=== PATIENT | female | born 1995 | race Two or more races ===

== ENCOUNTER 2017-04-29 20:28 | Emergency (ER) | payer OTHER ==
[~2017-04-29] VITALS: Ht 152.4 cm; Wt 62.3 kg
[~2017-04-29 20:28] MED LIST: FERR325T23 PO; IBUP200T48 PO; LEVE500T53 PO; NITR100C56 PO; OXYC-302 PO; PREN1TAB60 PO
[2017-04-29 21:04] VITALS: BP 130/80
[2017-04-29 21:29] LABS: ASPARTATE AMINO TRANSFERASE 12 U/L (15-37); BLOOD UREA NITROGEN 9 mg/dL (7-18)
== END 2017-04-29 21:51 | disposition home or self-care (01) ==
LOC: ED 21:45
DX: O26.891 Other specified pregnancy related conditions, first trimester (principal); R56.9 Unspecified convulsions; Z91.040 Latex allergy status; Z91.018 Allergy to other foods; Z3A.09 9 weeks gestation of pregnancy
CPT/HCPCS: 36415; 76801; 80053; 93005; 99285

== ENCOUNTER 2017-08-03 09:49 | Outpatient (CLI) | payer OTHER ==
[~2017-08-03] VITALS: Ht 152.4 cm; Wt 68.2 kg
[2017-08-03 10:35] VITALS: BP 114/79
[2017-08-03 10:57] LABS: AMNI OBC PASS; AMNISURE NEGATIVE (NEGATIVE)
== END 2017-08-03 11:15 | disposition home or self-care (01) ==
LOC: LDOP 09:49
PROVIDERS: ATTEND Obstetrics & Gynecology
DX: O42.912 Preterm premature rupture of membranes, unspecified as to length of time between rupture and onset of labor, second trimester (principal); Z3A.22 22 weeks gestation of pregnancy
CPT/HCPCS: 59025; 84112; 99211; G0463

== ENCOUNTER 2017-10-22 11:03 | Outpatient (CLI) | payer MEDICAID, OTHER ==
[~2017-10-22] VITALS: Ht 152.4 cm; Wt 75.0 kg
[~2017-10-22 11:03] MED LIST changes: -IBUP200T48 PO; +IBUP200T49 PO
[2017-10-22 11:11] VITALS: BP 112/77
== END 2017-10-22 12:18 | disposition home or self-care (01) ==
LOC: LDOP 11:03
PROVIDERS: ATTEND Obstetrics & Gynecology
DX: O36.8130 Decreased fetal movements, third trimester, not applicable or unspecified (principal); Z3A.35 35 weeks gestation of pregnancy
CPT/HCPCS: 59025; 99211; G0463

== ENCOUNTER 2017-11-28 15:44 | Outpatient (CLI) | payer MEDICAID ==
[~2017-11-28] VITALS: Ht 152.4 cm; Wt 83.2 kg
[2017-11-28 16:12] VITALS: BP 130/77
== END 2017-11-28 17:08 | disposition home or self-care (01) ==
LOC: LDOP 15:44
PROVIDERS: ATTEND Obstetrics & Gynecology
DX: O36.8130 Decreased fetal movements, third trimester, not applicable or unspecified (principal); Z3A.40 40 weeks gestation of pregnancy
CPT/HCPCS: 59025; 99211; G0463

== ENCOUNTER 2017-11-30 09:48 | Inpatient (IN) | payer MEDICAID ==
[~2017-11-30] VITALS: Ht 165.1 cm; Wt 83.2 kg
[2017-11-30 11:06] VITALS: BP 125/87
[2017-11-30] MEDS ORDERED: D5%-LACTATED RINGERS 1,000 ML IV SCH (12:38)
[2017-11-30] MEDS ORDERED: OXYTOCIN 30U/ 0.9% NaCL 500ML 500 ML IV ONE (12:38)
[2017-11-30] MEDS ORDERED: MISOPROSTOL 200 MCG TABLET ONE (12:54)
[2017-11-30] MEDS ORDERED: LIDOCAINE 1%, 20ML ONE (12:54)
[2017-11-30] MEDS ORDERED: FENTANYL PF 100 MCG/2ML ONE (12:54)
[2017-11-30] MEDS ORDERED: NEWBORN KIT ONE (12:54)
[2017-11-30] MEDS ORDERED: OXYTOCIN 30U/ 0.9% NaCL 500ML 500 ML ONE ×2 (12:54→21:34)
[2017-11-30] MEDS: LACTATED RINGERS 1,000 ML IV SCH ×4 (12:58→22:54)
[2017-11-30] MEDS ORDERED: FENTANYL PF 100 MCG/2ML IVPush PRN (13:00)
[2017-11-30] MEDS ORDERED: CALCIUM CARBONATE 500 MG TAB.CHEW PO PRN (13:00)
[2017-11-30] MEDS ORDERED: ONDANSETRON 2MG/ML, 2ML IVPush PRN (13:00)
[2017-11-30 13:13] LABS: BASOPHILS # (AUTO) 0.01 x10^3/uL (0-0.1); BASOPHILS % (AUTO) 0 % (0-1); EOSINOPHILS # (AUTO) 0.03 x10^3/uL (0-0.4); EOSINOPHILS % (AUTO) 0 % (1-7); LYMPHOCYTES % (AUTO) 15 % (22-44); MD NO; MEAN CORPUSCULAR HEMOGLOBIN 27.3 pg (27.0-34.8); MEAN CORPUSCULAR HGB CONC 32.6 g/dL (32.4-35.8); MEAN CORPUSCULAR VOLUME 83.8 fL (80-100); MEAN PLATELET VOLUME 7.8 fL (7.4-10.4); MONOCYTES # (AUTO) 0.51 x10^3/uL (0.2-0.8); MONOCYTES % (AUTO) 7 % (2-9); NEUTROPHILS # (AUTO) 5.89 x10^3/uL (1.8-6.8); NEUTROPHILS % (AUTO) 78 % (42-75); PLATELET COUNT 278 x10^3/uL (130-400); RED BLOOD COUNT 3.95 x10^6/uL (3.82-5.3); RED CELL DISTRIBUTION WIDTH 16.6 % (9.6-15.2)
[2017-11-30] MEDS ORDERED: LIDOCAINE-MPF 2% ,5ML ONE (13:40)
[2017-11-30] MEDS ORDERED: FENTANYL/BUPIV./NS/PF 250 ML EPIDCONT ONE (13:40)
[2017-11-30] MEDS ORDERED: FENTANYL/BUPIV./NS/PF 250 ML EPIDCONT SCH (14:15)
[2017-11-30] MEDS ORDERED: EPHEDRINE 50 MG/ML, 1ML IVPush PRN (14:30)
[2017-11-30] MEDS ORDERED: NALOXONE 0.4 MG/ML, 1ML IVPush PRN (14:30)
[2017-11-30] MEDS ORDERED: LACTATED RINGERS 1,000 ML IVBOLUS PRN (14:30)
[2017-11-30] MEDS ORDERED: OXYTOCIN 30U/ 0.9% NaCL 500ML 500 ML IV PRN (17:03)
[2017-11-30] MEDS ORDERED: OXYcodone/APAP 5/325MG TABLET PO PRN (21:30)
[2017-11-30] MEDS ORDERED: IBUPROFEN 600 MG TABLET ONE (21:30)
[2017-11-30] MEDS ORDERED: DOCUSATE 100 MG CAPSULE PO PRN (21:30)
[2017-11-30] MEDS ORDERED: MISOPROSTOL 200 MCG TABLET PR PRN (21:30)
[2017-11-30] MEDS: IBUPROFEN 600 MG TABLET PO PRN (21:37)
[2017-11-30] MEDS: OXYTOCIN 30U/ 0.9% NaCL 500ML 500 ML IV SCH (21:43)
[2017-12-01] MEDS ORDERED: ACETAMINOPHEN 325 MG TABLET ONE (00:04)
[2017-12-01] MEDS: ACETAMINOPHEN 325 MG TABLET PO PRN ×2 (00:18→17:17)
[2017-12-01 00:45] VITALS: BP 134/82
[2017-12-01 05:50] LABS: BASOPHILS # (AUTO) 0.02 x10^3/uL (0-0.1); BASOPHILS % (AUTO) 0 % (0-1); EOSINOPHILS # (AUTO) 0.02 x10^3/uL (0-0.4); EOSINOPHILS % (AUTO) 0 % (1-7); LYMPHOCYTES # (AUTO) 1.65 x10^3/uL (1-3.4); LYMPHOCYTES % (AUTO) 13 % (22-44); MD NO; MEAN CORPUSCULAR HEMOGLOBIN 28.4 pg (27.0-34.8); MEAN CORPUSCULAR HGB CONC 33.6 g/dL (32.4-35.8); MEAN CORPUSCULAR VOLUME 84.4 fL (80-100); MEAN PLATELET VOLUME 8.1 fL (7.4-10.4); MONOCYTES # (AUTO) 0.74 x10^3/uL (0.2-0.8); MONOCYTES % (AUTO) 6 % (2-9); NEUTROPHILS # (AUTO) 10.15 x10^3/uL (1.8-6.8); NEUTROPHILS % (AUTO) 81 % (42-75); PLATELET COUNT 244 x10^3/uL (130-400); RED BLOOD COUNT 3.49 x10^6/uL (3.82-5.3); RED CELL DISTRIBUTION WIDTH 16.8 % (9.6-15.2)
[2017-12-01] MEDS: IBUPROFEN 600 MG TABLET PO PRN ×2 (06:31→13:51)
[2017-12-01 06:55] VITALS: BP 119/77
[2017-12-01] MEDS: OXYTOCIN 30U/ 0.9% NaCL 500ML 500 ML IV SCH (07:22)
[2017-12-01] MEDS ORDERED: PRENATAL VIT/IRON/FA 1 EACH TABLET PO SCH (09:00)
[2017-12-01 12:10] VITALS: BP 122/85
[2017-12-01 15:55] VITALS: BP 121/81
[2017-12-01] MEDS ORDERED: IBUP-1222 PO (17:13)
== END 2017-12-01 18:54 | disposition home or self-care (01) | DRG 775 ==
LOC: LDOP 09:48 → LDIP 12:40 → 2NW 12-01 00:11
PROVIDERS: ADMIT Obstetrics & Gynecology; ATTEND Obstetrics & Gynecology
PROC: 10E0XZZ Delivery of Products of Conception, External Approach (ICD-10-PCS; principal; 2017-11-30)
PROC: 3E0R3BZ Introduction of Anesthetic Agent into Spinal Canal, Percutaneous Approach (ICD-10-PCS; 2017-11-30)
PROC: 00HU33Z Insertion of Infusion Device into Spinal Canal, Percutaneous Approach (ICD-10-PCS; 2017-11-30)
DX: O69.81X0 Labor and delivery complicated by cord around neck, without compression, not applicable or unspecified (principal); G40.409 Other generalized epilepsy and epileptic syndromes, not intractable, without status epilepticus; O99.354 Diseases of the nervous system complicating childbirth; Z37.0 Single live birth; O62.0 Primary inadequate contractions; Z3A.40 40 weeks gestation of pregnancy; Z82.3 Family history of stroke; Z83.3 Family history of diabetes mellitus
CPT/HCPCS: 36415; 85025; 86850; 86900; J3010; J2590; J7120; J7121